=== PATIENT | female | born 1990 | race Caucasian/White ===

== ENCOUNTER 2021-08-12 17:53 | Observation (INO) | payer OTHER ==
[~2021-08-12] VITALS: Ht 160 cm; Wt 82.5 kg
[2021-08-12] MEDS ORDERED: BUPROPION XL150 M1 PO (18:03)
[2021-08-12] MEDS ORDERED: SERTRALINE PO (18:04)
--- NOTE | 2021-08-12 18:43 | NUR ---
PT ARRIVED AT APPROX 1800, AMBULATED FROM [place] TO BED INDEPENDENTLY. PT A/O X4 AND INDEPENDENT. REPORTS NO PAIN OR NAUSEA/VOMITING. PLEASANT AND COOPERATIVE. VITALS STABLE.
--- NOTE | 2021-08-13 03:26 | NUR ---
SHIFT SUMMARY NO ACUTE CHANGES OVERNIGHT. PT REPORTS MINIMAL ABD PAIN T/O SHIFT. BUT PT C/O HEADACHE. PAIN MEDICATED WITH TORADOL TWICE T/O SHIFT WITH RELIEF. PT ALSO REPORT NAUSEA ONCE AT THE BEGINNING OF SHIFT. MEDICATED WITH ZOFRAN X1. AMBULATES INDEPENDENTLY IN ROOM. VOIDING WITHOUT ISSUE. VSS. LR INFUSING. ABX GIVEN VIA IV. IV ON R AC PATENT AND FLUSHES WELL. CALL LIGHT WITHIN REACH. WILL CONTINUE TO MONITOR AND WILL PROVIDE REPORT TO ONCOMING NURSE.
[2021-08-13 04:33] LABS: BASOPHILS ABSOLUTE AUTO 0.03 K/mm3 (0.00-0.23); BASOPHILS PERCENT AUTO 0 % (0-2); EOSINOPHILS ABSOLUTE AUTO 0.11 K/mm3 (0.00-0.68); EOSINOPHILS PERCENT AUTO 1 % (0-6); Hematocrit 41.7 % (33.0-51.0); Hemoglobin 13.8 g/dL (11.5-16.0); IMMATURE GRAN ABSOLUTE AUTO 0.02 K/mm3 (0.00-0.10); IMMATURE GRAN PERCENT AUTO 0 % (0-1); LYMPHOCYTES ABSOLUTE AUTO 2.01 K/mm3 (0.84-5.20); LYMPHOCYTES PERCENT AUTO 20 % (21-46); MONOCYTES ABSOLUTE AUTO 1.11 K/mm3 (0.16-1.47); MONOCYTES PERCENT AUTO 11 % (4-13); Mean Corpuscular HGB 29.2 pg (26.0-34.0); Mean Corpuscular HGB Conc 33.1 g/dL (31.5-36.5); Mean Corpuscular Volume 88 fL (80-100); Mean Platelet Volume 9.2 fL (9.1-12.4); NEUTROPHILS ABSOLUTE AUTO 6.92 K/mm3 (1.96-9.15); NEUTROPHILS PERCENT AUTO 68 % (41-73); Platelet Count 312 K/mm3 (150-400); RDW Coefficient Variation 12.6 % (11.7-14.2); Red Blood Cell Count 4.72 M/mm3 (3.80-5.20)
[2021-08-13 04:50] LABS: Bun/Creatinine Ratio 9.7 (12.0-20.0); Calcium, Blood 8.9 mg/dL (8.5-10.1); Creatinine, Blood 0.72 mg/dL (0.40-1.00); Potassium, Blood 3.8 mmol/L (3.5-5.5)
[2021-08-13 09:14] LABS: SARS-Cov-2 (COVID-19) PCR, MMC NEGATIVE (NEGATIVE)
--- NOTE | 2021-08-13 09:25 | NUR ---
PT TO DAY SURGERY AT THIS TIME.
--- NOTE | 2021-08-13 09:38 | NUR ---
HEPARIN SENT TO DAY SURGERY.
--- NOTE | 2021-08-13 11:31 | NUR ---
POST OP PT ARRIVAL TO UNIT POST OP. AWAKE AND ORIENTED. CURRENTLY DENIES PAIN AND NAUSEA. LAP SITES TO ABD X3 DRY AND INTACT. OFFERED JELLO AND WATER. POST OP VS IN PROGRESS AND STABLE. CALL LIGHT WITHIN REACH.
[2021-08-13] MEDS ORDERED: ONDA4ODT MM (11:54)
[2021-08-13] MEDS ORDERED: Norco 5-325 Ta1 EACH PO (11:54)
--- NOTE | 2021-08-13 14:06 | NUR ---
DISCHARGE PT EDUCATED ON AND RECEIVED PRINTED DISCHARGE INSTRUCTIONS AND VERBALIZED AN UNDERSTANDING. HARD RX FOR NORCO + ZOFRAN GIVEN TO PT. IV DC'D. PT TOLERATING PO, AMBULATING, VOIDING, AND PAIN MANAGED PER EMAR. PT GATHERING PERSONAL BELONGINGS AND WAITING FOR RIDE HOME.
--- NOTE | 2021-08-13 16:00 | NUR ---
PT DECLINES W/C SO THIS RN AMBULATED w/ PT TO WAITING AREA FOR FRIEND.
== END 2021-08-13 16:00 | disposition home or self-care (01) ==
LOC: SURS 17:53
PROVIDERS: ADMIT Surgery
PROC: 0DTJ4ZZ Resection of Appendix, Percutaneous Endoscopic Approach (ICD-10-PCS; principal; 2021-08-13 10:15)
DX: K35.80 Unspecified acute appendicitis (principal); Z20.822 Contact with and (suspected) exposure to COVID-19
CPT/HCPCS: 36415; 80048; 85025; 88304; A9270; J0295; J1100; J1644; J1885; J2250; J2405; J2704; J3010; J7040; J7120; U0004